=== PATIENT | female | born 1985 | race American Indian/Alaskan Native ===

== ENCOUNTER 2019-07-18 08:57 | Outpatient (CLI) | payer OTHER ==
--- NOTE | 2019-07-18 13:37 | Mammography Report ---
RIGHT DIGITAL DIAGNOSTIC MAMMOGRAM WITH CAD 07/18/2019 RIGHT COMPLETE BREAST ULTRASOUND INDICATION: Follow-up abscesses. She had needle aspirations and a benign biopsy performed at [facility] 04/26/2019. The biopsy revealed acute and chronic inflammatory changes but no malignancy. TECHNIQUE: Digital right mammographic imaging was performed. Complete ultrasound of all four (4) lindsay drants was performed. This examination was interpreted with the benefit of Computer-Aided Detection ( CAD) analysis. COMPARISON: [facility] right mammogram and right breast ultrasound 04/20/2019 and right bill ast ultrasound biopsy images 04/26/2019. FINDINGS: Breast Density: The breast is heterogeneously dense, which may obscure small masses. MAMMOGRAPHIC FINDINGS: No distinct mass or architectural distortion. A biopsy clip in the inner breas t approximately 4 cm from the nipple correlates with the recent benign biopsy site. 2 triangular shap ed markers identified palpable lumps. A mole marker identifies a skin lesion which appears to be the site of previous drainage. ULTRASOUND FINDINGS: Complete sonographic evaluation of all 4 quadrants and retroareolar region was p erformed. Ultrasound demonstrated a superficial retroareolar irregular collection contiguous to the skin at 12:00. It contains low-level moving internal echoes and measures 10.9 x 0.9 x 0.8 cm. A michelle lar but smaller collection at 2:00 5 cm from the nipple measures 1.8 x 1.5 x 0.8 cm. It also contains low-level moving internal echoes. An irregular solid hypoechoic mass at 1:30 o'clock retroareolar me asures 7 x 7 x 6 mm. It appears to contain a biopsy clip and correlates with the recently biopsied ma ss. An oval circumscribed solid hypoechoic relatively smooth mass at 2:00 5 cm from the nipple measur es 9 x 4 x 8 mm. This mass may correlate with one of the previously identified masses at 1:00 describ ed to be 7 cm and 6 cm from the nipple. This mass has more uniform echoes and is smoother and smaller . Skin lesion at 3:00 5 cm from the nipple appears to be a site of drainage from previous abscess. Th ere is a 5 mm cystic area in the center just deep to the skin. Ultrasound of the right axilla demonst rated no suspicious lymph nodes. IMPRESSION: 1. Residual abscesses at 12:00 retroareolar and at 2:00 5 cm from the nipple. Recommend needle aspira tion. 2. Probably benign masses at 1:30 o'clock retroareolar and at 2:00 5 cm from the nipple. Recommend sh ort-term follow-up with reevaluation by ultrasound in 6 months. Follow up recommendation: Short term follow up in 6 months. BI-RADS Category 3: Probably Benign. Followup in 6 months. A "normal" or negative report should not discourage follow up or biopsy of a clinically significant f inding. A written summary of these findings will be mailed to the patient. The patient will be entered into a mammography reporting system which will generate a reminder letter for the patient's next appointmen t at the appropriate interval. According to the [employer], yearly mammograms are recommended starting at age 40 and continuing as long as a woman is in good health. Breast MRI is recommended for women with an vaishali roximately 20-25% or greater lifetime risk of breast cancer, including women with a strong family his tory of breast or ovarian cancer and women who have been treated for Hodgkin's disease. Signer Name: Paul Corona MD Signed: 07/18/2019 1:33 PM Workstation Name: [id number]
== END 2019-07-18 08:58 | disposition home or self-care (01) ==
LOC: SPVWC 08:57
PROVIDERS: ATTEND Surgery
DX: R92.8 Other abnormal and inconclusive findings on diagnostic imaging of breast (principal); N61.1 Abscess of the breast and nipple; R92.2 Inconclusive mammogram